=== PATIENT | male | born 1965 | race Caucasian/White ===

== ENCOUNTER 2023-08-10 14:41 | Emergency (ER) | payer MEDICAID ==
[~2023-08-10] VITALS: Ht 175.3 cm; Wt 91.7 kg
[2023-08-10 14:49] VITALS: BP 175/112; PULSE 99; RESP 18; TEMP 99.4; O2SAT 97
[2023-08-10] MEDS: LIDOcaine 1% W/epiNEPHrine 1:100,000 20ml vial IJ ONE (16:19)
== END 2023-08-10 17:07 | disposition home or self-care (01) ==
LOC: ER 14:43
DX: S81.811A Laceration without foreign body, right lower leg, initial encounter (principal); I83.891 Varicose veins of right lower extremity with other complications; X58.XXXA Exposure to other specified factors, initial encounter; Y93.89 Activity, other specified; Y92.89 Other specified places as the place of occurrence of the external cause; Y99.8 Other external cause status
CPT/HCPCS: 12001; 99282; A6449